=== PATIENT | female | born 1960 | race Asian ===

== ENCOUNTER → 2018-10-20 | Outpatient (CLI) | payer OTHER ==
[2018-10-20 08:35] VITALS: BP_SYST 122; BP_SYST 124; BP_DIAS 70; BP_DIAS 91
[2018-10-20 10:16] VITALS: BP 150/81
== END | disposition home or self-care (01) ==
LOC: CARDMN 08:18
PROVIDERS: ATTEND Internal Medicine Cardiovascular Disease
DX: R07.9 Chest pain, unspecified (principal)
CPT/HCPCS: 93017